=== PATIENT | male | born 1970 | race Caucasian/White ===

== ENCOUNTER 2019-04-14 13:37 | Emergency (ER) | payer OTHER ==
[2019-04-14] MEDS: DEXAMETHASONE 10 MG/ML 1 ML INJ IM (14:37)
[2019-04-14] MEDS: KETOROLAC 60 MG INJ IM (14:38)
== END 2019-04-14 14:44 | disposition home or self-care (01) ==
LOC: FTE 14:44
DX: M54.12 Radiculopathy, cervical region (principal)
CPT/HCPCS: 96372; 99284-25